=== PATIENT | male | born 1985 | race African-American/Black ===

== ENCOUNTER 2018-10-02 08:15 | Emergency (ER) | payer BC ==
[~2018-10-02] VITALS: Ht 188 cm; Wt 71.0 kg
[2018-10-02] MEDS ORDERED: ACETAMINOPHEN 325MG TABLET PO ONE (09:15)
[2018-10-02] MEDS ORDERED: HYDROCODONE/ACETAMINOPHEN 10/325MG TABLET PO ONE (09:30)
[2018-10-02 09:49] VITALS: BP 144/83
== END 2018-10-02 11:00 | disposition home or self-care (01) ==
LOC: ER 08:15
DX: S16.1XXA Strain of muscle, fascia and tendon at neck level, initial encounter (principal); R51 Headache; R03.0 Elevated blood-pressure reading, without diagnosis of hypertension; V49.49XA Driver injured in collision with other motor vehicles in traffic accident, initial encounter; Y93.89 Activity, other specified; Y92.410 Unspecified street and highway as the place of occurrence of the external cause; I51.9 Heart disease, unspecified; Z95.0 Presence of cardiac pacemaker
CPT/HCPCS: 99284